=== PATIENT | female | born 1965 | race African-American/Black ===

== ENCOUNTER 2017-03-22 08:54 | Emergency (ER) | payer MEDICAID ==
[~2017-03-22] VITALS: Ht 162.6 cm; Wt 56.7 kg
[~2017-03-22 08:54] MED LIST: ACETAMINOPHEN-1 EAC1 ORAL; AUGMENTIN 875-1 EAC1 ORAL; AVAPRO75 MG ORAL; COLACE100 MG ORAL; IBUPROFEN600 MG ORAL; LEVAQUIN500 MG ORAL; MIRALAX17 G2 ORAL; NKM; NORCO 5-325 TA1 EACH ORAL; PEPCID AC20 M2 PO; TRAMADOL HCL50 MG ORAL
[2017-03-22] MEDS ORDERED: Oxycodone/Acetaminophen 5-325 ORAL ONE (09:15)
[2017-03-22] MEDS ORDERED: IBUPROFEN600 MG ORAL (10:22)
[2017-03-22] MEDS ORDERED: PERCOCET 5-3251 EACH ORAL (10:22)
[2017-03-22] MEDS ORDERED: VALIUM5 MG ORAL (10:22)
[2017-03-22 10:33] VITALS: BP 160/80
[2017-03-22 10:34] VITALS: BP 160/80
--- NOTE | 2017-03-22 15:34 | Emergency Room Report ---
History of Present Illness General Chief Complaint: Pain Source: Patient, Medical Record Present Illness HPI Patient presents emergency department today complaining of muscle pain on the r left side of her neck. She states that the pain is worse with movement. She states it feels like spasm. She denies any fever nausea vomiting diarrhea chills. She denies any headache. Denies any trauma. No other complaints are noted. Symptoms noted to be moderate to severe.No other modifying factors. No other associated signs and symptoms. No other complaints were noted. Allergies: Coded Allergies: No Known Allergies (Unverified , 06/11/14) Patient History Past Medical History: HTN Past Surgical History: hysterectomy Pertinent Family History: none Social History: Denies: alcohol use, drug use, smoking Reviewed Nursing Documentation: PMH: Agreed, PSxH: Agreed Nursing Documentation-PMH Past Medical History: No History, Except For Hx Hypertension: Yes Hx Cancer: No Hx Gastrointestinal Problems: Yes - total hysterectomy (2013) Hx Neurological Problems: No - Sickle Cell trait Review of Systems All Other Systems: negative except mentioned in HPI Physical Exam Vital Signs Date Time Temp Pulse Resp B/P Pulse Ox O2 Delivery O2 Flow Rate FiO2 03/22/17 08:56 98.2 69 16 170/78 99 Room Air Sp02 EP Interpretation: reviewed, normal General Appearance: normal inspection, well appearing, no apparent distress, alert Head: atraumatic Eyes: bilateral eye normal inspection ENT: normal ENT inspection, hearing grossly normal, normal voice Neck: supple, no bony tend, tender - left neck paraspinal Respiratory: normal inspection, lungs clear, normal breath sounds, no respiratory distress, no retraction, no wheezing Cardiovascular #1: regular rate, rhythm, no edema Gastrointestinal: normal inspection, normal bowel sounds, non tender, soft, no guarding, no hernia Genitourinary: no CVA tenderness Musculoskeletal: normal inspection, back normal, normal range of motion Neurologic: normal inspection, alert, responsive, speech normal Psychiatric: normal inspection, judgement/insight normal, mood/affect normal Skin: normal inspection, normal color, no rash Medical Decision Making Diagnostic Impression: Primary Impression: Neck muscle strain Qualified Codes: S16.1XXA - Strain of muscle, fascia and tendon at neck level , initial encounter ER Course Patient presents emergency department today complaining of neck strain. Differential considerations include muscle spasm, fracture, strain, meningitis, migraine headache, tension headache just name a few. Patient's exam is consistent with spasm of the neck. I felt the patient benefit from pain medications. Patient was given pain medications orally here with significant improvement. Patient was given prescription for pain medications.Patient is advised to follow up with primary doctor in 2-3 days and return the emergency room for any worsening symptoms and as needed. Last Vital Signs Date Time Temp Pulse Resp B/P Pulse Ox O2 Delivery O2 Flow Rate FiO2 03/22/17 10:34 98.2 80 16 160/80 99 Room Air Status: improved Disposition: HOME, SELF-CARE Condition: Stable Scripts Diazepam* (VALIUM*) 5 Mg Tablet 5 MG ORAL TID Y for ANXIETY, #30 TAB 0 Refills Prov: BUTCH MOSQUERA M.D. 03/22/17 Ibuprofen* (MOTRIN*) 600 Mg Tablet 600 MG ORAL Q8H Y for For Pain, #30 TAB 0 Refills Prov: BUTCH MOSQUERA M.D. 03/22/17 Oxycodone/Acetaminophen 5-325* (PERCOCET 5-325 MG TABLET*) 1 Each Tablet 1 TAB ORAL Q4H Y for For Pain, #15 TAB 0 Refills Prov: BUTCH MOSQUERA M.D. 03/22/17 Patient Instructions: Cervical Sprain BUTCH MOSQUERA M.D. Mar 22, 2017 15:34
== END 2017-03-22 10:36 | disposition home or self-care (01) ==
LOC: EMR 09:49
DX: S16.1XXA Strain of muscle, fascia and tendon at neck level, initial encounter (principal); X58.XXXA Exposure to other specified factors, initial encounter; Y92.89 Other specified places as the place of occurrence of the external cause; I10 Essential (primary) hypertension
CPT/HCPCS: 99284

== ENCOUNTER 2017-05-18 23:55 | Emergency (ER) | payer MEDICAID, OTHER ==
[~2017-05-18] VITALS: Ht 162.6 cm; Wt 59.0 kg
[~2017-05-18 23:55] MED LIST changes: +PERCOCET 5-3251 EACH ORAL; +VALIUM5 MG ORAL
[2017-05-19] MEDS ORDERED: Norco 5mg/325mg tab ORAL ONE (00:15)
--- NOTE | 2017-05-19 00:17 | Emergency Room Report ---
History of Present Illness General Chief Complaint: Pain Source: Patient Present Illness [facility] This Is a 52-year-old female with history hypertension. She presents with chief complaint of left leg pain. She had mild pain yesterday. The pain came on acutely after she walked her dog tonight. Pain is 10 out of 10. Sharp spastic pain starting from her foot all the way up her thigh. No back pain. No trauma. Worse with palpation and movement. No other injury. No incontinence of our urine. No fever. Allergies: Coded Allergies: No Known Allergies (Unverified , 06/11/14) Patient History Past Medical History: see triage record, old chart reviewed Past Surgical History: hysterectomy, other Pertinent Family History: none Social History: Denies: drug use Now: No Immunizations: other Reviewed Nursing Documentation: PMH: Agreed, PSxH: Agreed Nursing Documentation-PMH Hx Hypertension: Yes Hx Cancer: No Hx Gastrointestinal Problems: Yes - total hysterectomy (2013) Hx Neurological Problems: No - Sickle Cell trait Review of Systems Eye: Denies: eye pain, blurred vision ENT: Denies: ear pain, nose congestion, throat swelling Respiratory: Denies: cough, shortness of breath Cardiovascular: Denies: chest pain, palpitations Gastrointestinal: Denies: abdominal pain, diarrhea, nausea, vomiting Musculoskeletal: Reports: muscle pain, Denies: back pain, joint pain Skin: Denies: rash Neurological: Denies: headache, numbness Endocrine: Denies: increased thirst, increased urine Hematologic/Lymphatic: Denies: easy bruising All Other Systems: negative except mentioned in HPI Physical Exam Vital Signs Date Time Temp Pulse Resp B/P (MAP) Pulse Ox O2 Delivery O2 Flow Rate FiO2 05/18/17 23:47 97.9 82 16 162/90 93 Room Air Sp02 EP Interpretation: reviewed, normal General Appearance: well appearing, no apparent distress, alert Head: normocephalic, atraumatic Eyes: bilateral eye PERRL, bilateral eye EOMI ENT: hearing grossly normal, normal pharynx Neck: full range of motion, supple, no meningismus Respiratory: chest non-tender, lungs clear, normal breath sounds Cardiovascular #1: regular rate, rhythm, no murmur Gastrointestinal: normal bowel sounds, non tender, no mass, no organomegaly, no bruit, non-distended Musculoskeletal: back normal, normal range of motion, tender - Diffuse tenderness along the left leg. No deformity. Slight decrease in pulse. Normal pitcher. No redness. No evidence of trauma. No calf tenderness or swelling. Psychiatric: mood/affect normal Skin: warm/dry Medical Decision Making Diagnostic Impression: Primary Impression: Neuropathy of left lower extremity ER Course Patient with pain to the lower family. Most likely a neuropathy. May be referred pain from sciatica. She has no back pain however. Does notice any trauma. No fracture dislocation. Ultrasound negative for DVT or arterial occlusion. We'll discharge home. 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 She also said venous ultrasound is negative. Last Vital Signs Date Time Temp Pulse Resp B/P (MAP) Pulse Ox O2 Delivery O2 Flow Rate FiO2 05/18/17 23:47 97.9 82 16 162/90 93 Room Air Status: improved Disposition: HOME, SELF-CARE Condition: Stable Scripts Hydrocodone/Acetaminophen 5-325* (HYDROCODONE/ACETAMINOPHEN 5-325*) 1 Each Tablet 1 TAB ORAL Q6H Y for For Pain, #20 TAB 0 Refills Prov: JIMMY TENORIO M.D. 05/19/17 Gabapentin* (NEURONTIN*) 100 Mg Capsule 100 MG ORAL THREE TIMES A DAY, #30 CAP 0 Refills Prov: JIMMY TENORIO M.D. 05/19/17 Patient Instructions: PAIN, Uncertain Cause (Acute) Additional Instructions: Followup with your DrDayanara in 7 days. Return if symptom worsen. JIMMY TENORIO M.D. May 19, 2017 00:17
[2017-05-19] MEDS ORDERED: HYDROmorphone 1mg/ml Carpuject IM ONE (00:45)
[2017-05-19] MEDS ORDERED: HYDROCODON-ACE1 EA15 ORAL (00:51)
[2017-05-19] MEDS ORDERED: NEURONTIN100 MG ORAL (00:51)
[2017-05-19 01:48] VITALS: BP 137/81
[2017-05-19 01:50] VITALS: BP 137/81
--- NOTE | 2017-05-19 08:55 | Diagnostic Imaging Report ---
Indication: Left ankle pain Technique: XRAY ANKLE MIN 3VWS LEFT Comparison: None Findings: There is no acute fracture or dislocation. Bone mineralization is normal. There is mild degenerative spurring of the navicular. Impression: No acute osseous abnormality.
--- NOTE | 2017-05-20 12:51 | Diagnostic Imaging Report ---
APPROVED REPORT CPT Code: 02645 Present Symptoms Lower Extremity Pain: Left Comments: Limited compression tolerated due to pain. LEFT LEG: Venous imaging reveals a patent deep venous system. There is no evidence of thrombus within the femoral, popliteal or tibial segments. The greater saphenous vein is also within normal limits. Doppler indicates normal spontaneous flow within these segments.
== END 2017-05-19 01:45 | disposition home or self-care (01) ==
LOC: EDBD 23:55 → EMR 05-19 00:30
DX: G57.92 Unspecified mononeuropathy of left lower limb (principal); I10 Essential (primary) hypertension
CPT/HCPCS: 73610; 93926; 96372; 99284; J1170

== ENCOUNTER 2017-07-31 22:55 | Emergency (ER) | payer MEDICAID, OTHER ==
[~2017-07-31] VITALS: Ht 162.6 cm; Wt 59.0 kg
[~2017-07-31 22:55] MED LIST changes: +HYDROCODON-ACE1 EA15 ORAL; +NEURONTIN100 MG ORAL
--- NOTE | 2017-07-31 23:37 | Emergency Room Report ---
History of Present Illness General Chief Complaint: Abdominal Pain Source: Patient, Medical Record, EMS Present Illness HPI Is a 52-year-old female with a history of chronic abdominal pain since her surgery from hysterectomy. This was in 2013. It was complicated by adhesion and pelvic abscess. She had exploratory laparotomy done here. Since then she's been having abdominal pain and been here several times. She present today with acute onset of worsening of her abdominal pain. Worse tonight. Has nausea and vomiting. Also with diarrhea. Pain is 10 out of 10. No fever or chills. No urinary complaint. Has been drinking tonight Allergies: Coded Allergies: No Known Allergies (Unverified , 06/11/14) Patient History Past Medical History: see triage record, old chart reviewed Past Surgical History: hysterectomy, other Pertinent Family History: none Social History: Reports: alcohol use Now: No Immunizations: other Reviewed Nursing Documentation: PMH: Agreed, PSxH: Agreed Nursing Documentation-PMH Hx Hypertension: Yes Hx Cancer: No Hx Gastrointestinal Problems: Yes - total hysterectomy (2013) Hx Neurological Problems: No - Sickle Cell trait Review of Systems Eye: Denies: eye pain, blurred vision ENT: Denies: ear pain, nose congestion, throat swelling Respiratory: Denies: cough, shortness of breath Cardiovascular: Denies: chest pain, palpitations Gastrointestinal: Reports: abdominal pain, Denies: diarrhea, nausea, vomiting Musculoskeletal: Denies: back pain, joint pain Skin: Denies: rash Neurological: Denies: headache, numbness Endocrine: Denies: increased thirst, increased urine Hematologic/Lymphatic: Denies: easy bruising All Other Systems: negative except mentioned in HPI Physical Exam Vital Signs Date Time Temp Pulse Resp B/P (MAP) Pulse Ox O2 Delivery O2 Flow Rate FiO2 07/31/17 22:45 98.1 100 18 150/100 98 Room Air vitals with high blood pressure Sp02 EP Interpretation: reviewed, normal General Appearance: well appearing, no apparent distress, alert, other - Strong smell of alcoholic beverage on breath Head: normocephalic, atraumatic Eyes: bilateral eye PERRL, bilateral eye EOMI ENT: hearing grossly normal, normal pharynx Neck: full range of motion, supple, no meningismus Respiratory: chest non-tender, lungs clear, normal breath sounds Cardiovascular #1: regular rate, rhythm, no murmur Gastrointestinal: no mass, no organomegaly, no bruit, non-distended, abnormal bowel sounds - hyper-Active, tenderness - diffuse Musculoskeletal: back normal, gait/station normal, normal range of motion Neurologic: alert, oriented x3 Psychiatric: mood/affect normal Skin: warm/dry Medical Decision Making Diagnostic Impression: Primary Impression: Abdominal pain Qualified Codes: R10.84 - Generalized abdominal pain Additional Impressions: Opioid dependence Qualified Codes: F11.20 - Opioid dependence, uncomplicated Alcohol intoxication Qualified Codes: F10.920 - Alcohol use, unspecified with intoxication, uncomplicated ER Course Patient presents with exacerbation of chronic abdominal pain. No evidence of structure. No evidence of infection. No acute abdomen. She slept comfortably. Eating and drinking here. We'll discharge home. I told her to keep her appointment with a non acoustic operator. Lab Results Impression labs unremarkable CT/MRI/US Diagnostic Results CT/MRI/US Diagnostic Results : Imaging Test Ordered: CT abdomen and pelvis Impression Read by radiologist. No acute changes. Last Vital Signs Date Time Temp Pulse Resp B/P (MAP) Pulse Ox O2 Delivery O2 Flow Rate FiO2 07/31/17 22:45 98.1 100 18 150/100 98 Room Air Status: improved Disposition: HOME, SELF-CARE Condition: Stable Scripts Hydrocodone/Acetaminophen 5-325* (HYDROCODONE/ACETAMINOPHEN 5-325*) 1 Each Tablet 1 TAB ORAL Q6H Y for For Pain, #15 TAB 0 Refills Prov: CHAZ CARMONA M.D. 08/01/17 Patient Instructions: Abdominal Pain, Adult Additional Instructions: Followup your Dr. in 7 days. Keep the appointment with a non acoustic operator. Return if symptom worsen. Stop drinking. CHAZ CARMONA M.D. Jul 31, 2017 23:37
[2017-07-31 23:43] LABS: APPEARANCE,URINE CLEAR; KETONES,URINE NEGATIVE (NEGATIVE); LEUKOCYTE ESTERASE ,URINE NEGATIVE (NEGATIVE); NITRITE,URINE NEGATIVE (NEGATIVE); PH,URINE 5 (4.5-8.0); UROBILINOGEN,URINE NORMAL MG/DL (0.0-1.0)
[2017-07-31 23:45] LABS: BASOPHILS % (AUTO) 1.8 % (0.0-2.0); EOSINOPHILS % (AUTO) 0.7 % (0.0-3.0); LYMPHOCYTES % (AUTO) 52.2 % (20.0-45.0); MEAN CORPUSCULAR HEMOGLOBIN 30.6 PG (27.0-31.0); MEAN CORPUSCULAR HGB CONC 33.6 G/DL (32.0-36.0); MEAN CORPUSCULAR VOLUME 91 FL (80-99); MEAN PLATELET VOLUME 7.8 FL (6.5-10.1); NEUTROPHILS % (AUTO) 39.3 % (45.0-75.0); PLATELET COUNT 212 K/UL (150-450); RED BLOOD COUNT 4.51 M/UL (4.20-5.40); RED CELL DISTRIBUTION WIDTH 13.4 % (11.6-14.8); WHITE BLOOD COUNT 4.5 K/UL (4.8-10.8)
[2017-07-31] MEDS ORDERED: Morphine Sulfate 4mg/ml Inj IVP ONE (23:45)
[2017-07-31 23:47] LABS: PROTEIN,URINE NEGATIVE (NEGATIVE)
[2017-07-31 23:54] LABS: ANION GAP 11 mmol/L (5-15); CALCIUM 9.4 MG/DL (8.5-10.1); CARBON DIOXIDE 24 MMOL/L (21-32); CHLORIDE 108 MMOL/L (98-107); CREATININE 0.7 MG/DL (0.55-1.30); GLOMERULAR FILTRATION RATE > 60 mL/min (>60); SODIUM 142 MMOL/L (136-145)
[2017-08-01] LABS: ALANINE AMINOTRANSFERASE 57 U/L (12-78); ALBUMIN/GLOBULIN RATIO 0.8 (1.0-2.7); ALCOHOL 257 mg/dL; ASPARTATE AMINO TRANSFERASE 54 U/L (15-37); LIPASE 201 U/L (73-393)
[2017-08-01 01:29] VITALS: BP 148/88
[2017-08-01] MEDS ORDERED: HYDROCODON-ACE1 EA15 ORAL (01:53)
[2017-08-01] MEDS ORDERED: Morphine Sulfate 4mg/ml Inj IVP ONE (02:00)
[2017-08-01 02:03] VITALS: BP 148/88
--- NOTE | 2017-08-01 11:22 | Diagnostic Imaging Report ---
Clinical Indication: Lower abdominal pain Technique: No oral contrast utilized, per emergency room physician request IV administration nonionic contrast. Venous phase spiral acquisition obtained through the abdomen and pelvis. Multiplanar reconstructions were generated. Total dose length product 534 mGycm. CTDIvol(s) 11 mGy. Dose reduction achieved using automated exposure control Comparison: 07/31/2016 Findings: The appendix is normal. There is colonic diverticulosis. No evidence of diverticulitis. Small bowel loops are fluid-filled and prominent, with smaller caliber distal ileum, transition point probably in the right lower quadrant. No free or loculated intraperitoneal air or fluid. The distal esophagus, stomach, duodenum are unremarkable. There is questionably a subtle slightly hypoattenuating lesion of the pancreatic head which measures approximately 2 x 1.2 cm. This is not evident previously. No other pancreatic abnormality demonstrated. The above findings are somewhat discrepant from the [facility] preliminary report. Discrepant findings were phoned to Dr. Contreras at the time of interpretation and reported to [facility] The liver demonstrates a 17 mm cyst in segment 4A, and a 7 mm cyst in segment 5.. It also demonstrates multiple sub-5 mm low-attenuation lesions which are too small to characterize evidence of prior hysterectomy. The gallbladder is unremarkable. The common bile duct is mildly ectatic but unchanged in caliber. The spleen and left adrenal are unremarkable. The right adrenal demonstrates a 9 mm nodule which is unchanged on exams dating back to 06/11/2014. The kidneys are unremarkable. No retroperitoneal or mesenteric mass or adenopathy. The uterus is not demonstrated, presumed surgically absent. The included lung bases are clear. The bones are unremarkable. Impression: Prominent fluid-filled small bowel loops, most likely on the basis of enteritis or ileus. However, there is evidence of a slight caliber change in the right lower quadrant, so the possibility of early or partial small bowel obstruction cannot be completely ruled out. Questionable subtle slightly hypoattenuating lesion of the pancreatic head, measuring 2 x 1.2 cm. This is not evident on earlier studies. This may just be an artifact of redundant duodenal wall and mucosa, but the possibility of pancreatic neoplasm should be considered. Recommend further evaluation with endoscopic ultrasound. The above findings are discrepant from the preliminary [facility] report, were discussed by phone with Hepatic cysts. Subcentimeter low-attenuation hepatic lesions, too small to characterize, most likely benign simple cysts or bile hamartomas, also previously demonstrated. No further followup necessary Unchanged right adrenal nodule, presumably a benign adenoma Evidence of prior hysterectomy The CT scanner at [facility] is accredited by the [employer] and the scans are performed using protocols designed to limit radiation exposure to as low as reasonably achievable to attain images of sufficient resolution adequate for diagnostic evaluation.
== END 2017-08-01 02:04 | disposition home or self-care (01) ==
LOC: EDBD 22:55 → EMR 23:03
DX: R10.9 Unspecified abdominal pain (principal); F11.20 Opioid dependence, uncomplicated; G89.29 Other chronic pain; F10.129 Alcohol abuse with intoxication, unspecified; Z90.710 Acquired absence of both cervix and uterus; K76.89 Other specified diseases of liver
CPT/HCPCS: 36415; 74177; 80053; 80307; 80329; 81003; 83690; 85025; 96361; 96374; 96375; 96376; 99284; J2270; J2405; Q9967

== ENCOUNTER 2017-09-14 22:12 | Emergency (ER) | payer MEDICAID, OTHER ==
[~2017-09-14] VITALS: Ht 162.6 cm; Wt 59.0 kg
[2017-09-14 22:12] VITALS: BP 181/111
[2017-09-14] MEDS ORDERED: Norco 5mg/325mg tab ORAL ONE (22:30)
[2017-09-14] MEDS ORDERED: NORVASC10 MG ORAL (23:19)
[2017-09-14] MEDS ORDERED: HYDROCODON-ACE1 EA15 ORAL (23:19)
--- NOTE | 2017-09-14 23:19 | Emergency Room Report ---
History of Present Illness General Chief Complaint: Pain Source: Patient Present Illness HPI Is a 52-year-old female with history hypertension and chronic abdominal pain from a previous hysterectomy and complication. She presents with chewing the right shoulder pain. She claimed that she had 2-3 beers tonight and took her dogs for a walk. It ran off and she fell hurting her right shoulder. Also with right sided neck pain. Pain is 10 out of 10. Call 911. Denies any other complaint. No nausea no vomiting. No head injury. No loss of consciousness. Allergies: Coded Allergies: No Known Allergies (Unverified , 06/11/14) Patient History Past Medical History: see triage record, old chart reviewed Past Surgical History: other Pertinent Family History: none Social History: Denies: smoking Last Menstrual Period: none Now: No : 2 Para: 2 Immunizations: other Reviewed Nursing Documentation: PMH: Agreed, PSxH: Agreed Nursing Documentation-PMH Past Medical History: No Stated History Hx Hypertension: Yes Hx Cancer: No Hx Gastrointestinal Problems: Yes - total hysterectomy (2013) Hx Neurological Problems: No - Sickle Cell trait Review of Systems Eye: Denies: eye pain, blurred vision ENT: Denies: ear pain, nose congestion, throat swelling Respiratory: Denies: cough, shortness of breath Cardiovascular: Denies: chest pain, palpitations Gastrointestinal: Denies: abdominal pain, diarrhea, nausea, vomiting Musculoskeletal: Reports: joint pain, Denies: back pain Skin: Denies: rash Neurological: Denies: headache, numbness Endocrine: Denies: increased thirst, increased urine Hematologic/Lymphatic: Denies: easy bruising All Other Systems: negative except mentioned in HPI Physical Exam Vital Signs Date Time Temp Pulse Resp B/P (MAP) Pulse Ox O2 Delivery O2 Flow Rate FiO2 09/14/17 22:05 98.1 86 16 181/111 99 vitals with high blood pressure Sp02 EP Interpretation: reviewed, normal General Appearance: well appearing, no apparent distress, alert, other - Smell of alcoholic beverage on breath Head: normocephalic, atraumatic Eyes: bilateral eye PERRL, bilateral eye EOMI ENT: hearing grossly normal, normal pharynx Neck: full range of motion, supple, no meningismus Respiratory: chest non-tender, lungs clear, normal breath sounds Cardiovascular #1: regular rate, rhythm, no murmur Gastrointestinal: normal bowel sounds, non tender, no mass, no organomegaly, no bruit, non-distended Musculoskeletal: back normal, gait/station normal, tender - Diffuse tenderness of the shoulder. Decreased range of motion secondary to pain. No deformity however. She does have swelling over the mid clavicle. Minimal tenderness however. Neurologic: alert, oriented x3 Psychiatric: mood/affect normal Skin: warm/dry Medical Decision Making Diagnostic Impression: Primary Impression: Shoulder sprain Qualified Codes: S43.401A - Unspecified sprain of right shoulder joint, initial encounter Additional Impressions: Fracture, clavicle closed, shaft Qualified Codes: S42.024A - Nondisplaced fracture of shaft of right clavicle, initial encounter for closed fracture Alcohol abuse Hypertension Qualified Codes: I10 - Essential (primary) hypertension ER Course Patient presents with a fall. She may have a clavicle fracture. No shoulder fracture or dislocation. . To be intoxicated. We'll discharge home. I will put her on blood pressure medication. She says she's not taking anything because it caused side effect. Other X-Ray Diagnostic Results Other X-Ray Diagnostic Results : X-Ray ordered: Right shoulder x-rays # of Views/Limited Vs Complete: 3 View Indication: Pain EP Interpretation: Yes Interpretation: no dislocation, no soft tissue swelling, other - Nondisplaced right clavicle fracture. Calcific tendinitis of the shoulder joint Impression: Other - Clavicle fracture Electronically Signed by: Jimmy Tenorio MD Last Vital Signs Date Time Temp Pulse Resp B/P (MAP) Pulse Ox O2 Delivery O2 Flow Rate FiO2 09/14/17 22:05 98.1 86 16 181/111 99 Status: improved Disposition: HOME, SELF-CARE Condition: Stable Scripts Hydrocodone/Acetaminophen 5-325* (HYDROCODONE/ACETAMINOPHEN 5-325*) 1 Each Tablet 1 TAB ORAL Q6H Y for For Pain, #10 TAB 0 Refills Prov: JIMMY TENORIO M.D. 09/14/17 Amlodipine Besylate (Norvasc) 10 Mg Tablet 10 MG ORAL DAILY, #30 TAB Prov: JIMMY TENORIO M.D. 09/14/17 Referrals: [facility],REFERRIN (PCP) Additional Instructions: Followup with your DrDayanara in 7 days. Abstain from drinking to excess. Take her blood pressure medication. Return if symptom worsen. Ice pack to the area. JIMMY TENORIO M.D. Sep 14, 2017 23:19
[2017-09-14 23:27] VITALS: BP 174/102
--- NOTE | 2017-09-15 09:17 | Diagnostic Imaging Report ---
Indication: Trauma with pain Technique: Right shoulder, 3 views Comparison: None. Findings: Cystic changes are noted in the greater tuberosity. There calcifications adjacent to the greater tuberosity. Appears to be fracture of the clavicle but the age is uncertain. Remainder bones are intact. Impression: Traction the clavicle, age uncertain. Calcific tendinitis of the right shoulder. Degenerative change.
== END 2017-09-14 23:27 | disposition home or self-care (01) ==
LOC: EDBD 22:12 → EMR 22:23
DX: S43.401A Unspecified sprain of right shoulder joint, initial encounter (principal); S42.021A Displaced fracture of shaft of right clavicle, initial encounter for closed fracture; W19.XXXA Unspecified fall, initial encounter; Y93.K1 Activity, walking an animal; Y92.9 Unspecified place or not applicable; I10 Essential (primary) hypertension; M75.31 Calcific tendinitis of right shoulder; F10.10 Alcohol abuse, uncomplicated; D57.3 Sickle-cell trait
CPT/HCPCS: 99284

== ENCOUNTER 2018-04-14 11:26 | Emergency (ER) | payer MEDICAID ==
[~2018-04-14] VITALS: Ht 162.6 cm; Wt 65.8 kg
[~2018-04-14 11:26] MED LIST changes: +NORVASC10 MG ORAL
[2018-04-14] MEDS ORDERED: Norco 5mg/325mg tab PO ONE (11:45)
--- NOTE | 2018-04-14 13:18 | Diagnostic Imaging Report ---
Indication: Left knee pain Technique: 3 views of the left knee Comparison: None Findings: Questionable small suprapatellar effusion. No definite acute fractures. No dislocations. The joint spaces are preserved. Impression: Negative
[2018-04-14] MEDS ORDERED: IBUPROFEN600 MG ORAL (13:23)
[2018-04-14 13:29] VITALS: BP 142/81
[2018-04-14 13:30] VITALS: BP 142/81
[2018-04-14] MEDS ORDERED: TYLENOL EXTRA500 MG ORAL (13:47)
--- NOTE | 2018-04-14 15:14 | Emergency Room Report ---
History of Present Illness General Chief Complaint: General Complaint Source: Patient Present Illness HPI 52-year-old female presents ED for evaluation of left knee pain. Brought in by EMS. States that a few days ago she did bump her knee against the table. States pain is a 10 out of 10, throbbing, nonradiating. States she is unable to bear weight. States there is swelling. Denies any other injuries. Denies chest pain or shortness of breath. No other aggravating relieving factors. Denies any other associated symptoms Allergies: Coded Allergies: No Known Allergies (Unverified , 06/11/14) Patient History Past Medical History: HTN Past Surgical History: other - hysterectomy Pertinent Family History: none Social History: Denies: smoking, alcohol use, drug use Now: No Immunizations: UTD Reviewed Nursing Documentation: PMH: Agreed; PSxH: Agreed Nursing Documentation-PMH Past Medical History: No History, Except For Hx Hypertension: Yes Hx Cancer: No Hx Gastrointestinal Problems: Yes - total hysterectomy (2013) Hx Neurological Problems: No - Sickle Cell trait Review of Systems All Other Systems: negative except mentioned in HPI Physical Exam Vital Signs Date Time Temp Pulse Resp B/P (MAP) Pulse Ox O2 Delivery O2 Flow Rate FiO2 04/14/18 11:23 98.2 88 18 134/84 98 Room Air 98.2 Sp02 EP Interpretation: reviewed, normal General Appearance: no apparent distress, alert, GCS 15, non-toxic Head: normocephalic, atraumatic Eyes: bilateral eye normal inspection, bilateral eye PERRL ENT: hearing grossly normal, normal pharynx, no angioedema, normal voice Neck: full range of motion, supple/symm/no masses Respiratory: chest non-tender, lungs clear, normal breath sounds, speaking full sentences Cardiovascular #1: regular rate, rhythm, no edema Cardiovascular #2: 2+ carotid (R), 2+ carotid (L), 2+ radial (R), 2+ radial (L) , 2+ dorsalis pedis (R), 2+ dorsalis pedis (L) Gastrointestinal: normal bowel sounds, non tender, soft, non-distended, no guarding, no rebound Rectal: deferred Genitourinary: normal inspection, no CVA tenderness Musculoskeletal: back normal, gait/station normal, normal range of motion, swelling - LLE, tender - L knee Neurologic: alert, oriented x3, responsive, motor strength/tone normal, sensory intact, speech normal Psychiatric: judgement/insight normal, memory normal, mood/affect normal, no suicidal/homicidal ideation Reflexes: 3+ bicep (R), 3+ bicep (L), 3+ tricep (R), 3+ tricep (L), 3+ knee (R) , 3+ knee (L) Skin: normal color, no rash, warm/dry, well hydrated Lymphatic: no adenopathy Procedures Splinting Splinting : Consent: Verbal Pre-Made Type: knee immobilizer Pre-Proc Neuro Vasc Exam: normal Post-Proc Neuro Vasc Exam: normal Patient Tolerated: Well Complications: None Medical Decision Making Diagnostic Impression: Primary Impression: Knee injury Qualified Codes: S89.92XA - Unspecified injury of left lower leg, initial encounter ER Course Hospital Course 52-year-old F presents to ED complaining of L knee pain Differential diagnoses include: Fracture, dislocation, sprain, contusion Clinical course Patient placed on stretcher. After initial history and physical, I ordered pain medications and Xrays of L knee, venous duplex Xrays read shows no acute fracture/dislocation. Venous duplex shows no evidence of DVT Scuffs findings with patient. Patient safe for discharge close outpatient follow-up. Patient placed in knee immobilizer. Patient is requesting pain medications. CURES shows extensive narcotic prescriptions being given to her. Diagnosis - knee injury Stable and discharged to home with prescription for Tylenol. apply ice, keep elevated. weight bear as tolerated. Followup with PMD. Return to ED if symptoms recur or worsen Other X-Ray Diagnostic Results Other X-Ray Diagnostic Results : X-Ray ordered: L knee # of Views/Limited Vs Complete: 3 View Indication: Pain EP Interpretation: Yes Interpretation: no dislocation, no fractures, nonspecific bowel gas, other - suprapatellar effusion Impression: No acute disease Electronically Signed by: Electronically signed by Capo Contreras MD CT/MRI/US Diagnostic Results CT/MRI/US Diagnostic Results : Imaging Test Ordered: Venous Duplex LLE Impression no evidence of DVT Last Vital Signs Date Time Temp Pulse Resp B/P (MAP) Pulse Ox O2 Delivery O2 Flow Rate FiO2 04/14/18 13:30 98.3 65 18 142/81 100 Room Air 98.3 Status: improved Disposition: HOME, SELF-CARE Condition: Stable Scripts Acetaminophen* (TYLENOL EXTRA STRENGTH*) 500 Mg Tablet 500 MG ORAL Q8H PRN for Prn Headache/Temp > 101, #30 TAB 0 Refills Prov: Capo Contreras MD 04/14/18 Ibuprofen* (MOTRIN*) 600 Mg Tablet 600 MG ORAL Q8H PRN for For Pain, #30 TAB 0 Refills Prov: Capo Contreras MD 04/14/18 Patient Instructions: Knee Pain, [id number] Capo Contreras MD Apr 14, 2018 15:14
== END 2018-04-14 13:30 | disposition home or self-care (01) ==
LOC: EDBD 11:26 → EMR 12:03
DX: S89.92XA Unspecified injury of left lower leg, initial encounter (principal); M25.562 Pain in left knee; M25.462 Effusion, left knee; I10 Essential (primary) hypertension; W22.8XXA Striking against or struck by other objects, initial encounter; Y92.009 Unspecified place in unspecified non-institutional (private) residence as the place of occurrence of the external cause
CPT/HCPCS: 93971; 99283

== ENCOUNTER 2018-05-23 13:18 | Emergency (ER) | payer MEDICAID ==
[~2018-05-23] VITALS: Ht 162.6 cm; Wt 59.0 kg
[~2018-05-23 13:18] MED LIST changes: +TYLENOL EXTRA500 MG ORAL
--- NOTE | 2018-05-23 13:59 | Emergency Room Report ---
History of Present Illness General Chief Complaint: Female Urogenital Problems Source: Patient Present Illness HPI 53-year-old female patient presents to ER complaining of vaginal bleeding for the past 2 days. Reports small amount spotting noted when she was wiping. Denies passage of clots. Denies dysuria, hematuria, frequency, urgency, vaginal discharge. Reports history of hysterectomy in 2013 for uterine fibroids , states that she had an abscess in her abdomen performed following the surgery. Reports no symptoms or complications since that time. Denies recent injury or trauma. Reports diffuse abdominal pain during this time. Reports mild diarrhea for the past few days. Denies fever, chest pain, shortness of breath. Denies history of CHF or OR. Denies blood in stool.. denies syncope or fainting. Denies history of recent sexual activity or concern for STI. Reports mild back pain in bilateral flanks during this time. denies vomiting. Allergies: Coded Allergies: No Known Allergies (Unverified , 06/11/14) Patient History Past Medical History: see triage record Now: No Reviewed Nursing Documentation: PMH: Agreed; PSxH: Agreed Nursing Documentation-PMH Hx Hypertension: Yes Hx Cancer: No Hx Gastrointestinal Problems: Yes - total hysterectomy (2013) Hx Neurological Problems: No - Sickle Cell trait Review of Systems All Other Systems: negative except mentioned in HPI Physical Exam Vital Signs Date Time Temp Pulse Resp B/P (MAP) Pulse Ox O2 Delivery O2 Flow Rate FiO2 05/23/18 13:22 98.3 115 17 158/101 96 Room Air 98.2 Sp02 EP Interpretation: reviewed, normal General Appearance: well appearing, no apparent distress, alert, GCS 15, non- toxic Head: normocephalic, atraumatic Eyes: bilateral eye normal inspection, bilateral eye PERRL ENT: hearing grossly normal, normal pharynx, no angioedema, normal voice, uvula midline, moist mucus membranes Neck: full range of motion Respiratory: lungs clear, normal breath sounds, no rhonchi, no respiratory distress, no accessory muscle use, no wheezing, speaking full sentences Cardiovascular #1: regular rate, rhythm, no edema Gastrointestinal: normal bowel sounds, non tender, soft, no mass, non-distended , no guarding, no rebound, other - negative Rovsing, negative Torres Genitourinary: no CVA tenderness, deferred Musculoskeletal: back normal, digits/nails normal, gait/station normal, normal range of motion, non-tender Neurologic: alert, oriented x3, responsive, motor strength/tone normal, sensory intact Skin: no rash Medical Decision Making PA Attestation Dr. Contreras is my supervising Physician whom patient management has been discussed with. Diagnostic Impression: Primary Impression: Urinary tract infection Additional Impressions: Vaginal trichomoniasis Pancreatic neoplasm Hepatic cyst ER Course Pt presents to ED c/o vaginal bleeding 2 days. DDX considered but are not limited to UTI, fibroids, dysfunctional uterine bleeding, AAA, nephrolithiasis. Negative Rovsing, no fever, low suspicion for appendicitis, does not require CT at this time. Negative Torres sign, patient afebrile resting comfortably, low suspicion for cholecystitis. VITAL SIGNS are WNL, patient is afebrile Ordered CBC, CMP, Type and Screen, UA, UCG, bHCG, IV NS and pelvic US. Tylenol for pain control. ER COURSE: CBC and CMP unremarkable, no elevation WBCs or LFTs UA results multiple white blood cells and Trichomonas, will provide patient with Flagyl and antibiotics for UTI, likely causing symptoms. Lipase within normal limits Results discussed with patient. CT abdomen pelvis with contrast shows no acute disease. Discuss results with the patient. Provided patient with copy of results. Instructed patient to followup with PCP and discuss results of report with patient, discuss need for further treatment and referral. Discuss need for endoscopic US per radiology recommendation. Patient resting comfortably, in no acute distress, nontoxic appearing, ambulating independently without difficulty. Patient reports pain symptoms resolved since onset. Informed patient to take Tylenol only for pain symptoms. Avoid sexual activity. Followup with PCP and OBGYN for further testing and treatment. Followup with STI clinic for testing and treatment. Drink plenty of fluids. DISCHARGE: -Rx provided for Keflex -Rx provided for Flagyl, Do not drink alcohol while taking medications. At this time pt. is stable for d/c to home. At this time patient is resting comfortably, in no acute distress, nontoxic appearing, smiling and talking without difficulty. Will provide printed patient care instructions, and any necessary prescriptions. Patient instructed to follow with OBGYN for further treatment and referral as needed. Care plan and follow up instructions have been discussed with the patient prior to discharge. Patient reports understanding and agreement to treatment plan. Patient questions asked and answered. ER precautions given, patient instructed to return to ER immediately for any new or worsening of symptoms. - Please note that this Emergency Department Report was dictated using [employer] cleaner technology software, occasionally this can lead to erroneous entry secondary to interpretation by the dictation equipment. Labs Test 05/23/18 13:45 05/23/18 14:12 Urine Color Yellow Urine Appearance Cloudy Urine pH 5 (4.5-8.0) Urine Specific [place] 1.020 (1.005-1.035) Urine Protein 3+ (NEGATIVE) Urine Glucose (UA) Negative (NEGATIVE) Urine Ketones Negative (NEGATIVE) Urine Blood 5+ (NEGATIVE) Urine Nitrite Negative (NEGATIVE) Urine Bilirubin Negative (NEGATIVE) Urine Urobilinogen Normal MG/DL (0.0-1.0) Urine Leukocyte Esterase 3+ (NEGATIVE) Urine RBC Tntc /HPF (0 - 2) Urine WBC Tntc /HPF (0 - 2) Urine Squamous Epithelial Cells Many /LPF (NONE/OCC) Urine Bacteria Moderate /HPF (NONE) Urine Trichomonas Moderate /HPF (NONE) White Blood Count 4.5 K/UL (4.8-10.8) Red Blood Count 4.63 M/UL (4.20-5.40) Hemoglobin 13.7 G/DL (12.0-16.0) Hematocrit 41.0 % (37.0-47.0) Mean Corpuscular Volume 89 FL (80-99) Mean Corpuscular Hemoglobin 29.6 PG (27.0-31.0) Mean Corpuscular Hemoglobin Concent 33.4 G/DL (32.0-36.0) Red Cell Distribution Width 12.8 % (11.6-14.8) Platelet Count 215 K/UL (150-450) Mean Platelet Volume 6.8 FL (6.5-10.1) Neutrophils (%) (Auto) 50.3 % (45.0-75.0) Lymphocytes (%) (Auto) 38.3 % (20.0-45.0) Monocytes (%) (Auto) 7.4 % (1.0-10.0) Eosinophils (%) (Auto) 2.1 % (0.0-3.0) Basophils (%) (Auto) 1.8 % (0.0-2.0) Sodium Level 140 MMOL/L (136-145) Potassium Level 3.4 MMOL/L (3.5-5.1) Chloride Level 102 MMOL/L (98-107) Carbon Dioxide Level 24 MMOL/L (21-32) Anion Gap 14 mmol/L (5-15) Blood Urea Nitrogen 8 mg/dL (7-18) Creatinine 0.8 MG/DL (0.55-1.30) Estimat Glomerular Filtration Rate > 60 mL/min (>60) Glucose Level 208 MG/DL (74-106) Calcium Level 9.4 MG/DL (8.5-10.1) Total Bilirubin 0.4 MG/DL (0.2-1.0) Aspartate Amino Transf (AST/SGOT) 22 U/L (15-37) Alanine Aminotransferase (ALT/SGPT) 32 U/L (12-78) Alkaline Phosphatase 97 U/L (46-116) Total Protein 8.1 G/DL (6.4-8.2) Albumin 3.8 G/DL (3.4-5.0) Globulin 4.3 g/dL Albumin/Globulin Ratio 0.9 (1.0-2.7) Lipase 137 U/L (73-393) CT/MRI/US Diagnostic Results CT/MRI/US Diagnostic Results : Imaging Test Ordered: CT abdomen pelvis with contrast Impression No definite acute process No findings to explain stated clinical history of abnormal vaginal bleeding, particularly in view of evidence of prior hysterectomy Equivocal slight hepatic low attenuation, could indicate fatty change if real Subtle low-attenuation in the pancreatic head, measuring 14 mm diameter, pancreatic neoplasm a possibility if real, as previously. If no further workup as in previously performed concerning this, endoscopic ultrasound should be considered Bilateral adrenal nodules, stable since 2013 and therefore presumed to be benign adenomas Left lobe hepatic cysts. Scattered subcentimeter low-attenuation liver lesions, too small to characterize, most likely benign simple cysts Last Vital Signs Date Time Temp Pulse Resp B/P (MAP) Pulse Ox O2 Delivery O2 Flow Rate FiO2 05/23/18 13:22 98.3 115 17 158/101 96 Room Air 98.2 Disposition: HOME, SELF-CARE Condition: Stable Scripts Metronidazole* (FLAGYL*) 500 Mg Tablet 500 MG ORAL BID, #14 TAB Prov: Singh Rasmussen P.A. 05/23/18 Cephalexin* (KEFLEX*) 500 Mg Capsule 500 MG ORAL EVERY 12 HOURS, #14 CAP 0 Refills Prov: Singh Rasmussen 05/23/18 Referrals: NON PHYSICIAN (PCP) Patient Instructions: Trichomoniasis, Urinary Tract Infection, [id number] Additional Instructions: Followup with primary care provider and request referral to Urology/immigration law specialist. Followup with GI specialist. Discuss referral for endoscopic US. Followup with STI clinic for further evaluation and treatment. Alert sexual partners for need for evaluation and treatment. Wear condoms during sex. Avoid sexual activity for 2 weeks. Drink plenty of fluids. Patient questions asked and answered. ER precautions given, patient instructed to return to ER immediately for any new or worsening of symptoms. Singh Rasmussen May 23, 2018 13:59
[2018-05-23 14:15] VITALS: BP 158/101
[2018-05-23] MEDS ORDERED: Isovue-300 100ml vial INJ PRN (14:15)
[2018-05-23 14:17] LABS: APPEARANCE,URINE CLOUDY; BILIRUBIN, URINE NEGATIVE (NEGATIVE); GLUCOSE, URINE (UA) NEGATIVE (NEGATIVE); KETONES,URINE NEGATIVE (NEGATIVE); LEUKOCYTE ESTERASE ,URINE 3+ (NEGATIVE); NITRITE,URINE NEGATIVE (NEGATIVE); PH,URINE 5 (4.5-8.0); PROTEIN,URINE 3+ (NEGATIVE); UROBILINOGEN,URINE NORMAL MG/DL (0.0-1.0)
[2018-05-23 14:31] LABS: COLOR,URINE YELLOW
[2018-05-23 14:33] LABS: BASOPHILS % (AUTO) 1.8 % (0.0-2.0); EOSINOPHILS % (AUTO) 2.1 % (0.0-3.0); HEMOGLOBIN 13.7 G/DL (12.0-16.0); LYMPHOCYTES % (AUTO) 38.3 % (20.0-45.0); MEAN CORPUSCULAR VOLUME 89 FL (80-99); MONOCYTES % (AUTO) 7.4 % (1.0-10.0); NEUTROPHILS % (AUTO) 50.3 % (45.0-75.0); PLATELET COUNT 215 K/UL (150-450); RED BLOOD COUNT 4.63 M/UL (4.20-5.40); RED CELL DISTRIBUTION WIDTH 12.8 % (11.6-14.8); WHITE BLOOD COUNT 4.5 K/UL (4.8-10.8)
[2018-05-23 14:41] LABS: ANION GAP 14 mmol/L (5-15); BLOOD UREA NITROGEN 8 mg/dL (7-18); CALCIUM 9.4 MG/DL (8.5-10.1); CARBON DIOXIDE 24 MMOL/L (21-32); CHLORIDE 102 MMOL/L (98-107); CREATININE 0.8 MG/DL (0.55-1.30); POTASSIUM 3.4 MMOL/L (3.5-5.1); SODIUM 140 MMOL/L (136-145)
[2018-05-23 14:45] LABS: ALANINE AMINOTRANSFERASE 32 U/L (12-78); ALBUMIN 3.8 G/DL (3.4-5.0); ALBUMIN/GLOBULIN RATIO 0.9 (1.0-2.7); ALKALINE PHOSPHATASE 97 U/L (46-116); ASPARTATE AMINO TRANSFERASE 22 U/L (15-37); BILIRUBIN,TOTAL 0.4 MG/DL (0.2-1.0)
[2018-05-23] MEDS ORDERED: CEPHALEXIN500 MG ORAL (15:55)
[2018-05-23] MEDS ORDERED: METRONIDAZOLE500 MG ORAL (15:55)
--- NOTE | 2018-05-23 16:31 | Diagnostic Imaging Report ---
Clinical Indication: Bilateral flank pain, history of uterine fibroids, vaginal bleeding for 2 days Technique: No oral contrast utilized, per emergency room physician request IV administration nonionic contrast. Venous phase spiral acquisition obtained through the abdomen and pelvis. Multiplanar reconstructions were generated. Total dose length product 511.38 mGycm. CTDIvol(s) 9.67 mGy. Dose reduction achieved using automated exposure control Comparison: 08/01/2017 Findings: Lack of enteric contrast limits assessment of the GI tract. There is colonic diverticulosis. No evidence of diverticulitis. The appendix is normal. No small bowel distention. No free or loculated intraperitoneal gas or fluid. Distal esophagus, stomach, duodenum are unremarkable. The liver demonstrates slightly decreased attenuation. There is a cyst in segment 4A there there are multiple subcentimeter low-attenuation lesions which are too small to characterize. There is subtle low-attenuation in the pancreatic head measuring 14 mm in diameter is again equivocally demonstrated. This appears unchanged The gallbladder, bile ducts, spleen are all unremarkable. The left adrenal demonstrates a 14 mm nodule which demonstrates nonspecific attenuation, appears unchanged from the earlier study and also appears stable when compared to prior exam of May 2014. This is not very conspicuous on the most recent prior exam, however. The right adrenal demonstrates a 12 mm nodule also evident dating back to 2013. The kidneys are unremarkable. No retroperitoneal or mesenteric mass or adenopathy. The uterus is absent, presumably postsurgically. The included lung bases are clear. The bones demonstrate degenerative spondylosis changes. Impression: Limited assessment of the GI tract, due to lack of enteric contrast administration No definite acute process No findings to explain stated clinical history of abnormal vaginal bleeding, particularly in view of evidence of prior hysterectomy Equivocal slight hepatic low attenuation, could indicate fatty change if real Subtle low-attenuation in the pancreatic head, measuring 14 mm diameter, pancreatic neoplasm a possibility if real, as previously. If no further workup as in previously performed concerning this, endoscopic ultrasound should be considered Bilateral adrenal nodules, stable since 2013 and therefore presumed to be benign adenomas Left lobe hepatic cysts. Scattered subcentimeter low-attenuation liver lesions, too small to characterize, most likely benign simple cysts The CT scanner at [facility] is accredited by the [employer] and the scans are performed using protocols designed to limit radiation exposure to as low as reasonably achievable to attain images of sufficient resolution adequate for diagnostic evaluation.
[2018-05-23 16:45] VITALS: BP 158/101
== END 2018-05-23 16:47 | disposition home or self-care (01) ==
LOC: EMR 13:50
DX: N39.0 Urinary tract infection, site not specified (principal); A59.01 Trichomonal vulvovaginitis; D49.0 Neoplasm of unspecified behavior of digestive system; K76.89 Other specified diseases of liver; I10 Essential (primary) hypertension; Z90.710 Acquired absence of both cervix and uterus; D57.3 Sickle-cell trait
CPT/HCPCS: 36415; 74177; 80053; 81003; 83690; 85025; 87086; 99284; Q9967

== ENCOUNTER 2018-12-26 11:43 | Emergency (ER) | payer MEDICAID ==
[~2018-12-26] VITALS: Ht 162.6 cm; Wt 58.1 kg
[~2018-12-26 11:43] MED LIST changes: +CEPHALEXIN500 MG ORAL; +METRONIDAZOLE500 MG ORAL
[2018-12-26 11:58] VITALS: BP 145/90
[2018-12-26] MEDS ORDERED: Ketorolac 30mg Inj IV ONE (12:15)
--- NOTE | 2018-12-26 12:28 | Emergency Room Report ---
History of Present Illness General Chief Complaint: Chest Pain Source: Patient (Enid Knight) Present Illness HPI 53-year-old female with history of fibroids and post surgical intestinal rupture x3 years ago here complaining of pain in right lower quadrant left flank and left-sided chest radiating to shoulder and posterior back. She mentions that the sources of her pain are separate and are not radiating to each other. She mentions the pain occurred at rest denies dizziness, palpitation, syncope, shortness of breath. Patient reports that back in 2013 her surgeon accidentally ruptured the part of her intestine as the fibroids were being removed to be repaired. Has been using hydrocodone since. There is was done in the last hydrocodone was collected in July 2018. Denies nausea , vomiting, urinary complaints, blood in stool. She elicits pain even before palpation of her abdomen. Denies trauma, fall. Patient's she last took Excedrin this morning for pain without relief. (Enid Knight) Allergies: Coded Allergies: No Known Allergies (Unverified , 06/11/14) Patient History Past Medical History: see triage record Past Surgical History: unable to obtain Pertinent Family History: none Last Menstrual Period: 2013 Now: No Reviewed Nursing Documentation: PMH: Agreed; PSxH: Agreed (Enid Knight) Nursing Documentation-PMH Past Medical History: No History, Except For Hx Hypertension: Yes Hx Cancer: No Hx Gastrointestinal Problems: Yes - total hysterectomy (2013) Hx Neurological Problems: No - Sickle Cell trait (Enid Knight) Review of Systems All Other Systems: negative except mentioned in HPI (Enid Knight) Physical Exam Vital Signs Date Time Temp Pulse Resp B/P (MAP) Pulse Ox O2 Delivery O2 Flow Rate FiO2 12/26/18 11:47 98.4 70 22 96 Room Air Sp02 EP Interpretation: reviewed, normal General Appearance: normal inspection, well appearing, no apparent distress, alert, GCS 15 Head: normocephalic, atraumatic Eyes: bilateral eye normal inspection, bilateral eye PERRL ENT: normal ENT inspection, normal pharynx Neck: normal inspection, full range of motion, supple Respiratory: normal inspection, chest non-tender, lungs clear, normal breath sounds, no rhonchi Cardiovascular #1: normal inspection, normal peripheral pulses, regular rate, rhythm, no edema, no murmur Cardiovascular #2: 2+ radial (R), 2+ radial (L) Gastrointestinal: normal bowel sounds, non tender, guarding - RLQ Rectal: deferred Genitourinary: no CVA tenderness Musculoskeletal: normal inspection, back normal, digits/nails normal, normal range of motion, non-tender Neurologic: normal inspection, alert, oriented x3, responsive Psychiatric: normal inspection, judgement/insight normal Skin: normal inspection, normal color, no rash, warm/dry Lymphatic: normal inspection, no adenopathy (Enid Knight) Medical Decision Making PA Attestation All my diagnosis and treatment plans were reviewed ad discussed with my supervising physician Dr. Virgen (Enid Knight) Diagnostic Impression: Primary Impression: Mass of adrenal gland Additional Impressions: Diverticulosis of colon Liver cyst COPD (chronic obstructive pulmonary disease) Stimulant use disorder ER Course 53-year-old female with history of fibroids and post surgical intestinal rupture x3 years ago here complaining of pain in right lower quadrant left flank and left-sided chest radiating to shoulder and posterior back. She mentions that the sources of her pain are separate and are not radiating to each other. She mentions the pain occurred at rest denies dizziness, palpitation, syncope, shortness of breath. Patient reports that back in 2013 her surgeon accidentally ruptured the part of her intestine as the fibroids were being removed to be repaired. Has been using hydrocodone since. There is was done in the last hydrocodone was collected in July 2018. Denies nausea , vomiting, urinary complaints, blood in stool. She elicits pain even before palpation of her abdomen. Denies trauma, fall. Patient's she last took Excedrin this morning for pain without relief. Ddx considered but are not limited to: ME, Angina, COPD, GERD, diverticulitis, CKD, renal mass Vital signs: are WNL, pt. is afebrile H&PE are most consistent with COPD, adrenal mass bilaterally, hepatic cyst, cocaine and amphetamine use ORDERS: EKG, Chest XR, cardiac labs(troponin, CBC, CMP, BNP, UA, tox screen, abdominal chest CT no contrast, tylenol ED INTERVENTIONS: None required at this time. DISCHARGE: At this time pt. is stable for d/c to home. Will provide printed patient care instructions, and any necessary prescriptions. Care plan and follow up instructions have been discussed with the patient prior to discharge. patient to follow up with customs brokerage manager, for MRI of back and adrenal gland. no acute changes. avoid stimulant use. positive cocaine, amphetamine, thc (Enid Knight) EKG Diagnostic Results Rate: normal Rhythm: NSR ST Segments: no acute changes (Enid Knight) Chest X-Ray Diagnostic Results Chest X-Ray Diagnostic Results : Chest X-Ray Ordered: Yes # of Views/Limited/Complete: 1 View Indication: Chest Pain PA Xray: Interpretation reviewed, by supervising MD, and agrees with findings. Interpretation: no consolidation, no effusion, no pneumothorax Impression: No acute disease Electronically Signed by: enid PADILLA Scribe Text no acute process per radiology report (Enid Knight) Chest X-Ray Diagnostic Results : Electronically Signed by: Timmy Salguero documentation of Xray reviewed by me and is accurate, Will Virgen MD (Will Virgen MD) CT/MRI/US Diagnostic Results CT/MRI/US Diagnostic Results : Imaging Test Ordered: chest/abdomen CT Impression mild COPD no acute or significant thoracic abnormality limited assessment of GI tract colonic diverticulosis, no evidence of diverticulitis mild fatty liver low density stable bilateral adrenal masses, consistent with benign adenomas left lobe hepatic cysts surgically abscent uterus (Enid Knight) Last Vital Signs Date Time Temp Pulse Resp B/P (MAP) Pulse Ox O2 Delivery O2 Flow Rate FiO2 12/26/18 11:47 98.4 70 22 96 Room Air (Enid Knight) Disposition: HOME, SELF-CARE Condition: Stable Scripts Acetaminophen* (TYLENOL EXTRA STRENGTH*) 500 Mg Tablet 500 MG ORAL Q8H PRN for Prn Headache/Temp > 101, #30 TAB 0 Refills Prov: Enid Knight 12/26/18 Referrals: NON PHYSICIAN (PCP) Patient Instructions: Abdominal Pain, Adult, [id number], Chronic Obstructive Pulmonary Disease, Nonspecific Chest Pain Additional Inst[facility] and primary care provider back and renal MRI may be needed avoid taking NSAIDs, similar in such as cocaine and amphetamine Enid Knight December 26, 2018 12:28 Will Virgen MD December 26, 2018 19:41
[2018-12-26 12:59] LABS: APPEARANCE,URINE CLEAR; BILIRUBIN, URINE NEGATIVE (NEGATIVE); COLOR,URINE PALE YELLOW; GLUCOSE, URINE (UA) NEGATIVE (NEGATIVE); KETONES,URINE 2+ (NEGATIVE); LEUKOCYTE ESTERASE ,URINE 1+ (NEGATIVE); NITRITE,URINE NEGATIVE (NEGATIVE); PH,URINE 5 (4.5-8.0); PROTEIN,URINE 2+ (NEGATIVE); UROBILINOGEN,URINE NORMAL MG/DL (0.0-1.0)
[2018-12-26 13:02] LABS: HEMATOCRIT 40.9 % (37.0-47.0); HEMOGLOBIN 13.6 G/DL (12.0-16.0); MEAN CORPUSCULAR VOLUME 89 FL (80-99); PLATELET COUNT 247 K/UL (150-450); RED BLOOD COUNT 4.59 M/UL (4.20-5.40); RED CELL DISTRIBUTION WIDTH 13.8 % (11.6-14.8); WHITE BLOOD COUNT 2.9 K/UL (4.8-10.8)
[2018-12-26 13:16] LABS: ANION GAP 11 mmol/L (5-15); BLOOD UREA NITROGEN 9 mg/dL (7-18); CARBON DIOXIDE 27 MMOL/L (21-32); CHLORIDE 104 MMOL/L (98-107); CREATININE 0.8 MG/DL (0.55-1.30); POTASSIUM 4.3 MMOL/L (3.5-5.1); SODIUM 142 MMOL/L (136-145)
[2018-12-26 13:32] LABS: ALANINE AMINOTRANSFERASE 54 U/L (12-78); ALBUMIN 4.1 G/DL (3.4-5.0); ALKALINE PHOSPHATASE 82 U/L (46-116); ASPARTATE AMINO TRANSFERASE 50 U/L (15-37); BILIRUBIN,TOTAL 0.4 MG/DL (0.2-1.0); CKMB 0.9 NG/ML (0.0-3.6)
--- NOTE | 2018-12-26 13:50 | Diagnostic Imaging Report ---
Indication: Chest pain radiating down the abdomen Technique: One view of the chest Comparison: 06/16/2015 Findings: Lungs and pleural spaces are clear. Heart size is normal. No significant interim change Impression: No acute process
[2018-12-26 13:54] VITALS: BP 158/76
--- NOTE | 2018-12-26 14:05 | Diagnostic Imaging Report ---
CLINICAL INDICATION:Chest pain radiating down to abdomen, right lower quadrant and left flank pain, left-sided chest pain radiating to shoulder and posterior back TECHNIQUE: No oral contrast, per emergency room physician request. No IV contrast, per referring physician request. Spiral acquisitions obtained through the chest, abdomen, and pelvis. Multiplanar reconstructions were generated. Total dose length product 771.96 mGycm. CTDIvol(s) 12.02 mGy. Radiation dose was minimized using automated exposure control COMPARISON: No comparison chest CTs. Abdomen pelvis CT compared to 05/23/2018 contrast study FINDINGS Chest: The lungs demonstrate generalized very mild hyperinflation as well as a a few small scattered cystic spaces. No infiltrates, effusions, masses, nodules, or congestion demonstrated. The included portion of the thyroid is unremarkable. No mediastinal or hilar mass or adenopathy. Normal heart size. No pericardial effusion. Unremarkable esophagus. No axillary or chest wall mass or adenopathy. The bones are unremarkable except for an old healed right clavicular fracture deformity. Abdomen pelvis: Lack of enteric contrast limits assessment of the GI tract. There are numerous colonic diverticula. No evidence of diverticulitis. The appendix is normal. No small bowel distention. No free or loculated intraperitoneal gas or fluid is evident. Likely contrast limits assessment of the solid organs. The liver is mildly hypoattenuating, consistent with fatty change. There is a cyst in segment 4A. There are also subcentimeter low-attenuation lesions which are too small to characterize. The gallbladder is unremarkable. The common bile duct is upper limits normal in caliber. The pancreas is unremarkable. Previously demonstrated low-attenuation pancreatic head lesion is not evident on this current noncontrast study. The spleen, kidneys are unremarkable. There is a left adrenal nodule again demonstrated. This demonstrates 7 Hounsfield unit attenuation, consistent with a benign adenoma the right adrenal also demonstrates a low-attenuation nodule, somewhat less conspicuous currently, measuring 12 mm in diameter, also demonstrating low-attenuation consistent with benign adenoma. Both these lesions have been reported previously as being stable . The kidneys are unremarkable. No retroperitoneal or mesenteric mass or adenopathy. No pelvic mass or adenopathy. Uterus is absent, presumably postsurgically. The superficial soft tissues are unremarkable. The bones are unremarkable except for mild lumbar facet arthrosis. IMPRESSION: Mild COPD changes No acute or significant thoracic abnormality otherwise Limited assessment of the GI tract, due to lack of enteric contrast administration Colonic diverticulosis. No evidence of diverticulitis Mild fatty liver Low-density stable bilateral adrenal masses, consistent with benign adenomas Left lobe hepatic cysts. Subcentimeter low-attenuation hepatic lesions, too small to characterize, most likely benign simple cysts or bile hamartomas. No further follow-up necessary Surgically absent uterus Note that previously questioned pancreatic head lesion is not evident on this current noncontrast study Incidental finding old healed right clavicular fracture deformity. The CT scanner at [facility] is accredited by the [employer] and the scans are performed using protocols designed to limit radiation exposure to as low as reasonably achievable to attain images of sufficient resolution adequate for diagnostic evaluation.
[2018-12-26] MEDS ORDERED: TYLENOL EXTRA500 MG ORAL (14:23)
[2018-12-26 14:34] VITALS: BP 171/101
== END 2018-12-26 14:30 | disposition home or self-care (01) ==
LOC: EMR 12:10
DX: E27.9 Disorder of adrenal gland, unspecified (principal); K57.90 Diverticulosis of intestine, part unspecified, without perforation or abscess without bleeding; K76.89 Other specified diseases of liver; J44.9 Chronic obstructive pulmonary disease, unspecified; F19.90 Other psychoactive substance use, unspecified, uncomplicated; I10 Essential (primary) hypertension; Z90.710 Acquired absence of both cervix and uterus
CPT/HCPCS: 36415; 71045; 71250; 74176; 80053; 80307; 81003; 82553; 83690; 83880; 84484; 85007; 85025; 93005; 96374; 99284